=== PATIENT | male | born 1960 | race Caucasian/White ===

== ENCOUNTER 2018-11-26 20:47 | Emergency (ER) | payer OTHER, SELFPAY ==
[2018-11-26] MEDS ORDERED: HYDROcodone/Acetaminophen 5/325 mg Tablet ONE (22:06)
--- NOTE | 2018-11-26 22:59 | RAD ---
LEFT ANKLE THREE VIEWS: 11/26/2018 FINDINGS: There is an oblique fracture through the distal fibular shaft, just above the lateral malleolus. The re is an avulsion fracture from the inferior tip of the medial malleolus. The ankle mortise is widen ed medially. Flecks of bone are seen posteriorly on the lateral view, indicating a fracture through the distal tibia posteriorly. Additionally, there are some lucencies in the medial part of the dome of the talus. There is considerable soft tissue swelling as expected. A calcaneal spur was detected . In addition, there is a bony density alongside the cuboid. It is probably just an unusual os cubo idale, but it is difficult to assess if this is acute or not. IMPRESSION: 1. Trimalleolar fracture of the ankle with disruption and widening of the ankle mortise. 2. Evidence of an osteochondral injury to the dome of the talus, medial side. 3. Other findings as listed above. CODE T POS: HOME
== END 2018-11-26 22:15 | disposition home or self-care (01) ==
LOC: BURERS 20:47
DX: S82.832A Other fracture of upper and lower end of left fibula, initial encounter for closed fracture (principal); F17.220 Nicotine dependence, chewing tobacco, uncomplicated; X58.XXXA Exposure to other specified factors, initial encounter
CPT/HCPCS: 29515